=== PATIENT | female | born 1980 | race Caucasian/White ===

== ENCOUNTER 2017-02-09 19:44 | Emergency (ER) | payer OTHER ==
[2017-02-09] MEDS ORDERED: DOXYCYCLINE MONOHYDRATE 100 MG CAPSULE PO ONE (20:13)
[2017-02-09 21:01] VITALS: BP 147/89
--- NOTE | 2017-02-09 21:08 | ED Physician Documentation ---
General Adult - HISTORIAN Historian: patient - HPI Stated Complaint: sebaceous cyst Chief Complaint: General Adult Onset: days ago Timing: still present Severity: mild Further Comments: yes (Pt is a 36 yo female with hx sebaceous cyst removal, several times. Pt has had a lump in her L upper chest/breast for some time, which she was told was a sebaceous cyst. In the past day, it has become sore & tender. Pt plans to have cyst removed via her pcp.) - ROS CONST: no problems EYES/ENT: none CVS/RESP: none GI/: none MS/SKIN/LYMPH: other (swelling L upper chest/breast) - PAST HX Past History: hypertension, other (hysterectomy) Surgeries/Procedures: hysterectomy Allergies/Adverse Reactions: Allergies Allergy/AdvReac Type Severity Reaction Status Date / Time No Known Allergies Allergy Verified 02/09/17 20:30 Home Medications: Ambulatory Orders Medication Instructions Recorded Hydrochlorothiazide [Hydrodiuril] 25 mg PO DAILY 02/09/17 amLODIPine BESYLATE [Norvasc] 10 mg PO 0900 02/09/17 - SOCIAL HX Smoking History: cigarettes - FAMILY HX Family History: No - VITAL SIGNS Vital Signs: Vital Signs Temp Pulse Resp BP Pulse Ox 98.6 F 92 H 16 147/89 99 02/09/17 20:05 02/09/17 20:05 02/09/17 20:05 02/09/17 20:05 02/09/17 20:05 - REVIEWED ASSESSMENTS Nursing Assessment Reviewed: Yes Vitals Reviewed: Yes Progress - Progress Progress: Rx Doxycycline 100 mg po bid x 10 days. Pt will f/u w pcp for re-eval, removal of possible sebaceous cyst. ED Results Lab/Radiology - Orders Orders: ED Orders Category Date Time Status Doxycycline Monohydrate [Vibramycin] Med 02/09/17 20:13 Discontinued 100 mg PO NOW ONE General Adult Physical Exam - PHYSICAL EXAM GENERAL APPEARANCE: no distress NECK: normal inspection, supple RESPIRATORY: no resp distress, chest non-tender, breath sounds normal CVS: reg rate & rhythm, heart sounds normal ABDOMEN: soft BACK: normal inspection SKIN: other (2 cm mass in upper chest/breast, tender.) EXTREMITIES: non-tender, normal range of motion NEURO: oriented X3, motor nml, sensation nml Discharge Clincal Impression: cyst, R upper chest/breast Referrals: Pedro Hood [Primary Care Provider] - Home Medications: Ambulatory Orders Hydrochlorothiazide [Hydrodiuril] 25 mg PO DAILY 02/09/17 amLODIPine BESYLATE [Norvasc] 10 mg PO 0900 02/09/17 Condition: Good Disposition: 01 HOME, SELF-CARE Decision to Admit: NO Decision Time: 22:17
== END 2017-02-09 20:20 | disposition home or self-care (01) ==
LOC: ED 19:44
DX: N60.81 Other benign mammary dysplasias of right breast (principal)
CPT/HCPCS: 99283